=== PATIENT | female | born 1945 | race Caucasian/White ===

== ENCOUNTER 2024-11-30 12:43 | Inpatient (IN) ==
[2024-11-30 17:38] LABS: INR 1.12 (0.85-1.14)
[2024-11-30 17:53] LABS: ABS Basophils 0.1 10^3/uL (0.0-0.1); ABS Eosinophils 0.1 10^3/uL (0.0-0.5); ABS Lymphocytes 2.5 10^3/uL (1.0-4.8); ABS Monocytes 0.9 10^3/uL (0.0-0.9); ABS Neutrophils 3.1 10^3/uL (1.5-7.6); ABS Nucleated RBC 0.01 10^3/ul; Anisocytosis 1+; Eosinophil % 0.9 %; Giant Platelets Present; Hematocrit 35.2 % (35-45); Hemoglobin 12.1 g/dL (11.5-14.3); Lymphocyte % 37.4 %; Mean Corpuscular Hemoglobin 32.2 pg (27-33); Mean Corpuscular Hgb Conc 34.2 g/dL (31-36); Mean Corpuscular Volume 94.1 fL (80-97); Mean Platelet Volume 9.6 fL (7.5-11.2); Nucleated Red Blood Cells % 0.1 %/100WBC (0.0-0.8); Platelet Count 173 10^3/uL (150-450); Polychromasia 1+; Red Blood Count 3.74 10^6/uL (3.63-4.92); Red Cell Distribution Width 16.7 % (12-17); White Blood Count 6.6 10^3/uL (3.8-11.8)
[2024-11-30 18:00] LABS: Albumin 4.2 g/dL (3.5-5.7); Albumin/Globulin Ratio 1.7 (1-3); Calcium 9.4 mg/dL (8.6-10.3); Creatinine, Serum 1.11 mg/dL (0.51-0.95); Globulin 2.5 g/dL (2-4); Potassium 3.3 mmol/L (3.5-5.0); Total Bilirubin 1.8 mg/dL (0.2-1.0); Total Protein 6.7 g/dL (6.4-8.9); eGFR CKD-EPI 49.9 (>60)
[2024-11-30 19:39] LABS: High Sensitivity Troponin 1 Hr 216 pg/mL (<15)
[2024-11-30] MEDS: Gadoteridol (CONTRAST) 279.3 MG/ML 10 ML IV ONE (21:32)
[2024-11-30 23:06] LABS: Urine Appearance Clear; Urine Bilirubin Negative (Negative); Urine Blood Negative (Negative); Urine Color Light-Yellow; Urine Glucose 4+ (>=1000 mg/dL) (Negative); Urine Ketones Trace (Negative); Urine Nitrite Negative (Negative); Urine Protein Negative (Negative); Urine Urobilinogen Negative (Negative)
[2024-12-01] MEDS ORDERED: CMCS: Lactase Enzyme (NF) 3,000 UNIT TAB PO PRN (01:09)
[2024-12-01] MEDS ORDERED: Albuterol HFA INHALER 8 gm MDI INH PRN (01:09)
[2024-12-01] MEDS ORDERED: Dextrose 50% Syringe 50 ml 25 GM/50 ML SYRINGE IV PUSH PRN (01:09)
[2024-12-01] MEDS: KCL 20 MEQ/100 ML IVPREMIX 20 MEQ/100 ML BAG IV SCH (01:48)
[2024-12-01] MEDS: Potassium Chlor 20 meq TAB.ER PO ONE (01:48)
[2024-12-01] MEDS: LOVASTATIN 40 MG PO SCH (01:53)
[2024-12-01] MEDS: Insulin GLARGINE 100 un/ml 10 ml VIAL SUBCUT SCH (01:56)
[2024-12-01 07:42] LABS: Calcium 8.4 mg/dL (8.6-10.3); Creatinine, Serum 1.03 mg/dL (0.51-0.95); Magnesium 1.7 mg/dL (1.9-2.7); Phosphorus 3.7 mg/dL (2.5-5.0); Potassium 3.9 mmol/L (3.5-5.0); eGFR CKD-EPI 54.6 (>60)
[2024-12-01 07:48] LABS: Hematocrit 32.2 % (35-45); Hemoglobin 11.3 g/dL (11.5-14.3); Mean Corpuscular Hemoglobin 33.3 pg (27-33); Mean Corpuscular Hgb Conc 35.3 g/dL (31-36); Mean Corpuscular Volume 94.5 fL (80-97); Mean Platelet Volume 9.8 fL (7.5-11.2); Platelet Count 163 10^3/uL (150-450); Red Cell Distribution Width 16.4 % (12-17); White Blood Count 6.6 10^3/uL (3.8-11.8)
[2024-12-01] MEDS: Mometasone 220 MCG MDI INH SCH (08:58)
[2024-12-01] MEDS: VIBEGRON 75 MG PO SCH (09:01)
[2024-12-01 09:02] LABS: ABS Basophils 0.1 10^3/uL (0.0-0.1); ABS Eosinophils 0.1 10^3/uL (0.0-0.5); ABS Monocytes 0.9 10^3/uL (0.0-0.9); ABS Neutrophils 3.6 10^3/uL (1.5-7.6); Eosinophil % 0.8 %; Lymphocyte % 30.7 %; Nucleated Red Blood Cells % 0.1 %/100WBC (0.0-0.8)
[2024-12-01 09:03] LABS: Large Platelets Present; RBC Morphology Normal (Normal)
[2024-12-01] MEDS: Empagliflozin 25 MG TAB PO SCH (09:11)
[2024-12-01] MEDS: Magnesium Sulfate 2 gm BAG 2 GM/50 ML BAG IVPB ONE (09:14)
[2024-12-01] MEDS: Enoxaparin 80 MG/0.8 ML SYR SUBCUT SCH (17:58)
[2024-12-01 20:30] LABS: C Reactive Protein 8.56 mg/L (<8.01)
[2024-12-01] MEDS: Fluticasone NASAL SPRAY 50MCG 16 gm SPRAY BTL INTRANASAL SCH (22:55)
[2024-12-02 06:51] LABS: ABS Basophils 0.1 10^3/uL (0.0-0.1); ABS Eosinophils 0.1 10^3/uL (0.0-0.5); ABS Lymphocytes 2.5 10^3/uL (1.0-4.8); ABS Monocytes 1.1 10^3/uL (0.0-0.9); ABS Neutrophils 4.2 10^3/uL (1.5-7.6); ABS Nucleated RBC 0.01 10^3/ul; Eosinophil % 1.2 %; Hematocrit 33.8 % (35-45); Hemoglobin 11.8 g/dL (11.5-14.3); Lymphocyte % 31.2 %; Mean Corpuscular Hemoglobin 32.9 pg (27-33); Mean Corpuscular Hgb Conc 34.8 g/dL (31-36); Mean Corpuscular Volume 94.4 fL (80-97); Mean Platelet Volume 9.8 fL (7.5-11.2); Nucleated Red Blood Cells % 0.1 %/100WBC (0.0-0.8); Platelet Count 190 10^3/uL (150-450); Red Blood Count 3.58 10^6/uL (3.63-4.92); Red Cell Distribution Width 16.7 % (12-17)
[2024-12-02 07:01] LABS: Calcium 9.1 mg/dL (8.6-10.3); Creatinine, Serum 1.15 mg/dL (0.51-0.95); Magnesium 2.4 mg/dL (1.9-2.7); Potassium 3.4 mmol/L (3.5-5.0); eGFR CKD-EPI 47.9 (>60)
[2024-12-02] MEDS: Potassium Chlor 20 meq TAB.ER PO ONE (12:28)
[2024-12-02] MEDS: Iodixanol 320 (CONTRAST) 100 ML SDV IV ONE (23:52)
[2024-12-03 07:17] LABS: ABS Basophils 0.1 10^3/uL (0.0-0.1); ABS Lymphocytes 1.2 10^3/uL (1.0-4.8); ABS Monocytes 0.7 10^3/uL (0.0-0.9); ABS Neutrophils 5.2 10^3/uL (1.5-7.6); ABS Nucleated RBC 0.02 10^3/ul; Eosinophil % 0.6 %; Hematocrit 32.1 % (35-45); Hemoglobin 11.4 g/dL (11.5-14.3); Lymphocyte % 16.6 %; Mean Corpuscular Hemoglobin 33.4 pg (27-33); Mean Corpuscular Hgb Conc 35.6 g/dL (31-36); Mean Corpuscular Volume 93.9 fL (80-97); Mean Platelet Volume 9.5 fL (7.5-11.2); Nucleated Red Blood Cells % 0.2 %/100WBC (0.0-0.8); Platelet Count 164 10^3/uL (150-450); Red Blood Count 3.42 10^6/uL (3.63-4.92); Red Cell Distribution Width 16.8 % (12-17); White Blood Count 7.2 10^3/uL (3.8-11.8)
[2024-12-03 07:42] LABS: Calcium 8.7 mg/dL (8.6-10.3); Creatinine, Serum 1.15 mg/dL (0.51-0.95); eGFR CKD-EPI 47.9 (>60)
[2024-12-03] MEDS: Potassium Chlor 20 meq TAB.ER PO ONE (09:16)
[2024-12-03] MEDS: Ondansetron 4 mg VIAL 2 MG/ML 2 ml VIAL IV PRN (09:16)
[2024-12-03] MEDS: Potassium Chloride LIQUID 20 MEQ/15 ML LIQUID PO SCH (11:12)
[2024-12-03] MEDS ORDERED: Ondansetron 4 mg VIAL 2 MG/ML 2 ml VIAL IV PRN (14:12)
[2024-12-03] MEDS: Sulfur Hexaflouride MICROSPHR 25 MG VIAL IV PRN (15:00)
[2024-12-03] MEDS: Scopolamine 1 mg/72hr PATCH TRANSDERM SCH (15:49)
[2024-12-03] MEDS ORDERED: Potassium Chlor 20 meq TAB.ER PO SCH (21:00)
[2024-12-05 06:51] LABS: Hematocrit 30.8 % (35-45); Mean Corpuscular Hemoglobin 33.3 pg (27-33); Mean Corpuscular Hgb Conc 35.7 g/dL (31-36); Mean Corpuscular Volume 93.4 fL (80-97); Red Cell Distribution Width 17.2 % (12-17); White Blood Count 9.6 10^3/uL (3.8-11.8)
[2024-12-05 08:44] LABS: Mean Platelet Volume 10.3 fL (7.5-11.2); Platelet Count 160 10^3/uL (150-450)
[2024-12-05 08:48] LABS: Calcium 8.7 mg/dL (8.6-10.3); Creatinine, Serum 1.83 mg/dL (0.51-0.95); Magnesium 2.3 mg/dL (1.9-2.7); Potassium 3.9 mmol/L (3.5-5.0); eGFR CKD-EPI 27.4 (>60)
[2024-12-05] MEDS ORDERED: Prochlorperazine 5 mg/ml 2 ml VIAL (10 mg) IV PRN (10:44)
[2024-12-05] MEDS: Albuterol/Ipratropium NEB.SOL (2.5/0.5 MG) 3 ML NEB.SOLN INH PRN (20:30)
[2024-12-05] MEDS: Norepinephrine 32MCG/ML D5WBAG 8,000 MCG/250 ML BAG IV SCH (22:25)
[2024-12-05] MEDS: Propofol 10 mg/ml 100 ML BTL 1,000 MG/100 ML BTL IV SCH (22:58)
[2024-12-05 23:14] LABS: PCO2 Arterial 48 mmHg (35-45); PO2 Arterial 90 mmHg (80-100)
[2024-12-05] MEDS ORDERED: Acetaminophen IV 1 GM/100ML 1,000 MG/100 ML BAG IV PRN (23:15)
[2024-12-05] MEDS: fentaNYL 100 mcg/2 ml 50 MCG/ML VIAL IV SLOW PU PRN (23:19)
[2024-12-05] MEDS ORDERED: fentaNYL 100 mcg/2 ml 50 MCG/ML VIAL IV SLOW PU PRN (23:52)
[2024-12-06 00:27] LABS: Urine Appearance Clear; Urine Bilirubin Negative (Negative); Urine Blood Negative (Negative); Urine Color Yellow; Urine Glucose 4+ (>=1000 mg/dL) (Negative); Urine Ketones Negative (Negative); Urine Nitrite Negative (Negative); Urine Protein Negative (Negative); Urine Urobilinogen Negative (Negative)
[2024-12-06 01:30] LABS: Hematocrit 33.8 % (35-45); Hemoglobin 11.7 g/dL (11.5-14.3); Mean Corpuscular Hemoglobin 32.7 pg (27-33); Mean Corpuscular Hgb Conc 34.5 g/dL (31-36); Mean Corpuscular Volume 94.8 fL (80-97); Red Blood Count 3.57 10^6/uL (3.63-4.92); Red Cell Distribution Width 17.7 % (12-17)
[2024-12-06 01:39] LABS: Activated Partial Thrombo Time 28.5 seconds (26.0-38.0); INR 1.33 (0.85-1.14)
[2024-12-06] MEDS: Propofol 10 mg/ml 100 ML BTL 1,000 MG/100 ML BTL ONE (01:40)
[2024-12-06] MEDS: fentaNYL 100 mcg/2 ml 50 MCG/ML VIAL ONE ×2 (01:41)
[2024-12-06] MEDS ORDERED: Lorazepam PYXIS KEY PRN (01:41)
[2024-12-06] MEDS: Morphine 10 MG/ML VIAL (1 ml) IV ONE ×2 (01:51→02:21)
[2024-12-06] MEDS: LORazepam 2 mg VIAL 1 ml IV PUSH ONE (01:52)
[2024-12-06] MEDS ORDERED: Chlorhexidine MOUTHWASH 0.12% 15 ML UDC TOPICAL SCH (02:00)
[2024-12-06 02:01] VITALS: BP 117/63
[2024-12-06] MEDS ORDERED: Morphine 10 MG/ML VIAL (1 ml) ONE (02:21)
[2024-12-06 02:24] LABS: Albumin 3.4 g/dL (3.5-5.7); Albumin/Globulin Ratio 1.5 (1-3); Calcium 8.2 mg/dL (8.6-10.3); Creatinine, Serum 2.04 mg/dL (0.51-0.95); Globulin 2.3 g/dL (2-4); Magnesium 2.4 mg/dL (1.9-2.7); Potassium 3.9 mmol/L (3.5-5.0); Total Bilirubin 3.3 mg/dL (0.2-1.0); Total Protein 5.7 g/dL (6.4-8.9); eGFR CKD-EPI 24.1 (>60)
[2024-12-06 03:16] LABS: ABS Basophils 0.3 10^3/uL (0.0-0.1); ABS Lymphocytes 0.7 10^3/uL (1.0-4.8); ABS Monocytes 2.3 10^3/uL (0.0-0.9); ABS Neutrophils 15.7 10^3/uL (1.5-7.6); ABS Nucleated RBC 0.05 10^3/ul; Eosinophil % 0.1 %; Large Platelets Present; Lymphocyte % 3.8 %; Mean Platelet Volume 10.3 fL (7.5-11.2); Nucleated Red Blood Cells % 0.3 %/100WBC (0.0-0.8); Platelet Count 152 10^3/uL (150-450); RBC Morphology Normal (Normal)
[2024-12-06] MEDS ORDERED: Enoxaparin 80 MG/0.8 ML SYR SUBCUT SCH (06:00)
== END 2024-12-06 02:51 | disposition expired | DRG 65 ==
LOC: ED 12:43 → EDHOLD 12:43 → SUATTDRO 23:40 → INTOOBSV 23:40 → MEDTELE 12-01 12:34 → ICU 12-01 12:39
PROVIDERS: ADMIT Student in an Organized Health Care Education/Training Program; ATTEND Student in an Organized Health Care Education/Training Program